=== PATIENT | female | born 1950 | race Caucasian/White ===

== ENCOUNTER → 2018-01-17 | Outpatient (CLI) | payer OTHER ==
[~2018-01-17] VITALS: Ht 167.6 cm; Wt 52.2 kg
[~2018-01-17] MED LIST: ATIVAN1 MG PO; CLARITIN10 MG PO; FLUTICASONE PRO16 GM NASAL; LIPITOR10 MG PO; NEXIUM40 MG PO; VITAMIN D2000 UNIT PO
--- NOTE | ~2018-01-17 | P ---
[facility] [place] [address] PROCEDURE REPORT Name: SUMMER ORTIZ Room #: REG [facility]#: [id number] Admission: 01/17/18 Attend Phys: Doron Paez MD Discharge: Date of : 46 Report #: [id number] THIS REPORT FOR: //name// CC: Doron Caal MD BRIEF HISTORY: The patient is a 67-year-old woman for her first initial colonoscopy. PREOPERATIVE DIAGNOSIS: Average risk screening colonoscopy. POSTOPERATIVE DIAGNOSES: 1. Polypoid mass lesions, proximal ascending colon x 2. 2. A 5 mm polyp, cecum. 3. Few scattered colon diverticula. MEDICATIONS: Deep sedation with propofol per anesthesia. SPECIMENS: 1. Polyp, cecum. 2. Biopsies of polypoid mass lesions in the proximal ascending colon. ESTIMATED BLOOD LOSS: 3 mL. PROCEDURE: Colonoscopy to the cecum and terminal ileum. FINDINGS: Prior to propofol sedation, the procedure of colonoscopy discussed with the patient as well as potential risks, benefits and complications. She indicates she understands and desires to proceed. With the patient in the left lateral decubitus position, digital examination was completed, which revealed no abnormalities. Subsequently, the [employer] video colonoscope was introduced in the rectum and advanced under direct vision to the cecum. Done with minimal difficulty. The cecum was identified by the ileocecal valve and the appendiceal orifice. I was able to visualize the distal segment of the terminal ileum, which was inspected and noted to be unremarkable. At that point, the scope was slowly withdrawn and careful circumferential views obtained. Within the cecum, a 5 mm polyp was seen and removed by biopsy. As we withdrew the scope, she was found to have a polypoid lesion in the very proximal ascending colon. It appeared to be on a narrow base and was probably at least 15 mm in length. We carefully examined this lesion and we started to make preparations to elevate it with saline and remove by snare polypectomy. Upon inspection of this area, a second larger polypoid mass was seen on the opposite wall. This one was considerably larger and appeared to have a larger base, but due to its size, I could not see the entire base of the lesion. Both of these lesions were at essentially the same level and they collectively involved at [address] [address] PROCEDURE REPORT Name: SUMMER ORTIZ Room #: REG [facility].#: [id number] Admission: 01/17/18 Attend Phys: Doron Paez MD Discharge: Date of : 46 Report #: [id number] least 50% of the lumen of the colon at this point. Neither one was obviously malignant, but the larger one was more worrisome with regards to malignancy. After careful consideration, it was felt best to biopsy these lesions and apply tattoos rather than attempt to remove them endoscopically. Therefore, attempts to fully remove these lesions were abandoned. Biopsies were taken. We also placed tattoo aguayo just distal to the polypoid lesions. At that point, the scope was slowly withdrawn and careful circumferential views were obtained. As we withdrew the scope, no additional neoplastic lesions were seen. An occasional diverticulum was seen scattered about the colon. No other abnormalities were identified. The scope was withdrawn in the rectum. Upon retroflexion, no abnormalities were seen. The scope was withdrawn. The patient tolerated the procedure well. CONDITION OF THE PATIENT UPON DISCHARGE: Following procedure, the patient drowsy, arousable and conversant and will be discharged home when fully ambulatory. INSTRUCTIONS TO THE PATIENT AND FAMILY AT THE TIME OF DISCHARGE: The patient has two polypoid mass lesions in the proximal ascending colon. Endoscopically, I would favor surgical resection of these lesions because of their size and volume. Biopsies were obtained. Tattoos were applied. We will discuss further with the patient and her family. <ELECTRONICALLY SIGNED> By: Doron Paez MD 01/19/18 1030 0907 1046 Doron Paez MD /nt
--- NOTE | ~2018-01-17 | PATH ---
[facility] [address] [address] PATHOLOGY RPT PROCEDURE Name: SHELBY RAMIREZ Room #: REG [facility] M.Harry.#: [id number] Admission: 01/17/18 Date of : 46 Discharge: Report #: [id number] Path Case #: [id number] [facility] Accession Number: [id number] . 01 Material submitted: . PART A: CECUM POLYP PART B: BX OF PROXIMAL ASCENDING MASS LESIONS X2 . 01 Clinical history: . Pre-OP DX: Polyp, Hx Post-OP DX: Cecal polyp, ascending colon mass, diverticulosis . 02 Diagnosis: A. Polyp, cecum polyp, endoscopic biopsy: - Tubular adenoma. - Negative for high-grade dysplasia. . B. 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 - Negative for high-grade dysplasia or invasive carcinoma (please see comment). . (IUV:christiano; 01/18/2018) MBHarry/01/18/2018 . 02 Comment: The fragments sampled as "proximal ascending mass lesions" show a tubulovillous adenoma. The fragments, however, appear superficial. Therefore, please note sample may not be entirely medical service representative. Correlate clinically and followup as indicated. . 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 02 Electronically signed: . Silva Benson MD, Pathologist NPI- [id number] . 01 Gross description: . A. Received in formalin labeled "James Shelby, polyp at cecum," are 3 segments of mo soft tissue measuring 0.9 x 0.9 x 0.3 cm in aggregate dimensions and ranging from 0.3 to 0.5 cm in maximum dimension. The specimen is submitted entirely in cassette A1. . B. Received in formalin labeled "Shelby Ramirez, BX of proximal ascending mass lesions x2," are multiple segments of mo soft tissue measuring 1.5 x 0.5 x 0.1 cm in aggregate dimensions. The specimen is filtered and [address] [address] PATHOLOGY RPT PROCEDURE Name: RAMIREZSHELBY S Room #: REG [facility] M.R.#: [id number] Admission: 01/17/18 Date of : 46 Discharge: Report #: [id number] Path Case #: [id number] entirely submitted in cassette B1. (TSD; 01/17/2018) TOB/TOB . 02 Pathologist provided ICD-10: D12.0, D12.2 . 02 CPT . 072008, 137566 Specimen Comment: A courtesy copy of this report has been sent to Specimen Comment: [phone], . Specimen Comment: Report sent to / DR LUEVANO Performed at: [address], [place], [place] [id number] MD Jesus Obregon MD Phone: [phone] Performed at: [address] [id number] MD Silva Benson MD Phone: [phone]
== END | disposition home or self-care (01) ==
LOC: GI 12-13 10:06
DX: Z12.11 Encounter for screening for malignant neoplasm of colon (principal); D12.0 Benign neoplasm of cecum; D12.2 Benign neoplasm of ascending colon; K57.30 Diverticulosis of large intestine without perforation or abscess without bleeding; F41.9 Anxiety disorder, unspecified; F17.210 Nicotine dependence, cigarettes, uncomplicated; K21.9 Gastro-esophageal reflux disease without esophagitis; Z90.710 Acquired absence of both cervix and uterus; Z79.899 Other long term (current) drug therapy; Z98.890 Other specified postprocedural states
CPT/HCPCS: 62110; 62900

== ENCOUNTER 2018-11-22 17:19 | Emergency (ER) | payer OTHER ==
[~2018-11-22] VITALS: Ht 167.6 cm; Wt 54.4 kg
[2018-11-22 17:58] LABS: HEMATOCRIT 38.4 % (37.0-47.0); HEMOGLOBIN 12.7 gm/dL (12.0-15.0); MCHC 33.1 g/dL (28.0-37.0); MCV 96.8 fL (80.0-100.0); PLATELET COUNT 313 thou/uL (150-400); RBC 3.97 mil/uL (4.20-5.00); RDW 14.4 % (10.5-14.5); WBC 11.1 thou/uL (4.0-11.0)
[2018-11-22 18:04] LABS: ANION GAP 9 mmol/L (7-16); BUN 19 mg/dL (7-18); CALCIUM 9.4 mg/dL (8.5-10.1); CHLORIDE 104 mmol/L (98-107); CO2 27 mmol/L (21-32); CREATININE 0.9 mg/dL (0.6-1.0); GLUCOSE 91 mg/dL (74-106); POTASSIUM 3.8 mmol/L (3.5-5.1); SODIUM 140 mmol/L (136-145)
[2018-11-22 18:14] LABS: ALBUMIN 3.7 g/dL (3.4-5.0); SGOT 15 U/L (15-37); SGPT 10 U/L (30-65); TOTAL BILIRUBIN 0.7 mg/dL (<0.1-1.0); TOTAL PROTEIN 7.8 g/dL (6.4-8.2); TROPONIN-I <0.06 ng/mL (<0.06)
[2018-11-22 18:34] LABS: ABSOLUTE NEUTROPHILS 6.7 thou/uL (1.4-8.2)
[2018-11-22] MEDS ORDERED: NORCO 5-325 TA1 EAC1 PO (19:42)
[2018-11-22] MEDS ORDERED: LIDOCAINE PAIN1 EACH TRANSDERM (19:42)
[2018-11-22 19:55] VITALS: BP 159/57
--- NOTE | 2018-11-23 10:19 | EKG ---
[address] [place] [place] [address] ELECTROCARDIOGRAM REPORT Name: SUMMER ORTIZ Room #: [facility]#: [id number] Admission: 11/22/18 Attend Phys: Discharge: 11/22/18 Date of : 46 Report #: [id number] THIS REPORT FOR: //name// [facility] ED Test Date: 2018-11-22 Test Time: 17:30:31 Pat Name: SUMMER ORTIZ Department: Room: Gender: F Scanning Tech: : 1950 Requested By: Lázaro Dsouza Order Number: [id number] MD: Armen Nguyen Measurements Intervals [place] Rate: 51 P: 91 NM: 165 QRS: 91 QRSD: 97 T: 62 QT: 448 QTc: 413 Interpretive Statements Sinus rhythm Atrial premature complex Right axis deviation Consider left ventricular hypertrophy No previous ECG available for comparison Electronically Signed On 11-23-2018 10:19:23 CDT by Armen Nguyen [email or web address] <ELECTRONICALLY SIGNED> By: Armen Nguyen MD 11/23/18 1019 1730 1730 Armen Nguyen MD /EPI
== END 2018-11-22 19:50 | disposition home or self-care (01) ==
LOC: ER 17:19
PROVIDERS: Physician Assistant
DX: M54.6 Pain in thoracic spine (principal); M25.512 Pain in left shoulder; K21.9 Gastro-esophageal reflux disease without esophagitis; E78.5 Hyperlipidemia, unspecified; F41.9 Anxiety disorder, unspecified; F17.210 Nicotine dependence, cigarettes, uncomplicated; Z90.710 Acquired absence of both cervix and uterus